=== PATIENT | male | born 1980 | race Caucasian/White ===

== ENCOUNTER 2024-04-02 04:02 | Emergency (ER) | payer BC ==
[~2024-04-02] VITALS: Ht 177.8 cm; Wt 118.0 kg
[2024-04-02] VITALS (17 sets, daily range): BP systolic 123–155; BP diastolic 79–107
[2024-04-02] MEDS ORDERED: SODIUM CHLORIDE 0.9% 1,000 ML IV STA (04:16)
[2024-04-02] MEDS ORDERED: KETOROLAC TROMETHAMINE 30 MG/ML SDV IV ONE (04:20)
[2024-04-02] MEDS ORDERED: DIATRIZOATE MEGLUMINE & SODIUM 30 ML/BTL PO ONE (04:20)
[2024-04-02] MEDS ORDERED: PROMETHAZINE HCL 25 MG/ML AMP IV ONE (04:20)
[2024-04-02 04:41] LABS: URINE BLOOD DIPSTICK Trace-intact (NEGATIVE); URINE GLUCOSE - DIPSTICK Negative (NEGATIVE); URINE KETONE Negative (NEGATIVE); URINE LEUK ESTERASE Negative (NEGATIVE); URINE NITRITE - DIPSTICK Negative (Negative); URINE PROTEIN - DIPSTICK Negative (NEG-TRACE); URINE SPECIFIC GRAVITY 1.015
[2024-04-02 04:41] LABS: BASO% 0.5 % (0-3); EOS% 2.2 % (0-8); HEMATOCRIT 45.3 % (39.0-50.0); HEMOGLOBIN 15.8 g/dl (14.0-18.0); IMMATURE GRANULOCYTES 0.7 % (0.0-5.0); LYMPH% 10.8 % (15-41); MEAN CELL VOLUME 97.6 fL CALC (80.0-100.0); MEAN CORPUSCULAR HGB 34.1 pG CALC (26.0-32.0); MEAN CORPUSCULAR HGB CONC 34.9 g/dL CAL (32.0-36.0); MONO% 7.3 % (2-13); NEUT# 12.79 thou/uL (1.82-7.42); NEUT% 78.5 % (42-76); RED BLOOD COUNT 4.64 mill/uL (4.70-6.10); RED CELL DISTRI WIDTH 12.3 % (11.5-15.5)
[2024-04-02 04:42] LABS: URINE COLOR Yellow
[2024-04-02 04:53] LABS: ALBUMIN 4.3 g/dL (3.2-5.0); ALKALINE PHOSPHATASE 68 u/l (38-126); ANION GAP 15 (6-22 (CALC)); BILIRUBIN, TOTAL 2.3 mg/dL (0.2-1.3); BUN 11 mg/dL (9-20); BUN/CREATININE RATIO 11 (12-20 (CALC)); CARBON DIOXIDE 28 mmol/l (22-30); CHLORIDE 92 mmol/l (95-108); ESTIMATED GFR 95 ML/MIN (>=90 (CALC)); LIPASE 322 u/l (23-300); POTASSIUM 3.2 mmol/l (3.5-5.1); SGOT/AST 36 u/l (17-59); SODIUM 132 mmol/l (137-146); TOTAL PROTEIN 8.2 g/dL (6.3-8.2)
[2024-04-02] MEDS ORDERED: BUPROPN HCL150 MG PO (05:07)
[2024-04-02] MEDS ORDERED: METOPROLOL TAR100 MG PO (05:08)
[2024-04-02] MEDS ORDERED: NITROGLYCERIN0.4 MG SL (05:12)
[2024-04-02] MEDS ORDERED: MYSOLINE50 M1 PO (05:13)
[2024-04-02] MEDS ORDERED: HYDROCHLOROTH12.5 MG PO (05:14)
[2024-04-02] MEDS ORDERED: RAPIFLUX20 M1 PO (05:14)
[2024-04-02] MEDS ORDERED: XANAX1 MG PO (05:15)
[2024-04-02] MEDS ORDERED: ASPIRINCHW 81MG PO (05:16)
[2024-04-02] MEDS ORDERED: SODIUM CHLORIDE 0.9% 1,000 ML IV ONE (06:35)
[2024-04-02] MEDS ORDERED: POTASSIUM CHLORIDE 20MEQ 100 ML IV ONE (06:35)
[2024-04-02] MEDS ORDERED: MORPHINE SULFATE 4 MG/ML VIAL IV ONE (07:15)
[2024-04-02] MEDS ORDERED: K-TAB20 MEQ PO (08:45)
[2024-04-02] MEDS ORDERED: LEVSIN0.125 M1 PO (08:45)
[2024-04-02] MEDS ORDERED: ZOFRAN4 MG/TAB PO (08:45)
[2024-04-02] MEDS ORDERED: TRAMADOL HYDROC50 M1 PO (08:45)
== END 2024-04-02 09:21 | disposition home or self-care (01) | DRG 392 ==
LOC: ED 04:02
PROVIDERS: Family Medicine
DX: R10.13 Epigastric pain (principal); I10 Essential (primary) hypertension
CPT/HCPCS: Q9967

== ENCOUNTER 2024-05-13 08:47 | Emergency (ER) | payer BC ==
[~2024-05-13] VITALS: Ht 177.8 cm; Wt 117.0 kg
[2024-05-13] VITALS (21 sets, daily range): BP systolic 122–156; BP diastolic 81–108
[~2024-05-13 08:47] MED LIST: ASPIRINCHW 81MG PO; BUPROPN HCL150 MG PO; HYDROCHLOROTH12.5 MG PO; K-TAB20 MEQ PO; LEVSIN0.125 M1 PO; METOPROLOL TAR100 MG PO; MYSOLINE50 M1 PO; NITROGLYCERIN0.4 MG SL; RAPIFLUX20 M1 PO; TRAMADOL HYDROC50 M1 PO; XANAX1 MG PO; ZOFRAN4 MG/TAB PO
[2024-05-13] MEDS ORDERED: ONDANSETRON HCl 4 MG/2 ML SDV IV ONE ×2 (08:55→14:10)
[2024-05-13] MEDS ORDERED: SODIUM CHLORIDE 0.9% 1,000 ML IV ONE (08:55)
[2024-05-13] MEDS ORDERED: KETOROLAC TROMETHAMINE 15 MG/ML SDV IV ONE (09:00)
[2024-05-13 09:21] LABS: BASO% 0.3 % (0-3); EOS% 0.2 % (0-8); HEMATOCRIT 45.8 % (39.0-50.0); HEMOGLOBIN 15.5 g/dl (14.0-18.0); IMMATURE GRANULOCYTES 0.2 % (0.0-5.0); LYMPH% 15.9 % (15-41); MEAN CELL VOLUME 103.6 fL CALC (80.0-100.0); MEAN CORPUSCULAR HGB 35.1 pG CALC (26.0-32.0); MEAN CORPUSCULAR HGB CONC 33.8 g/dL CAL (32.0-36.0); MONO% 9.2 % (2-13); NEUT# 9.53 thou/uL (1.82-7.42); NEUT% 74.2 % (42-76); RED BLOOD COUNT 4.42 mill/uL (4.70-6.10); RED CELL DISTRI WIDTH 16.5 % (11.5-15.5)
[2024-05-13 09:43] LABS: ALBUMIN 4.1 g/dL (3.2-5.0); POTASSIUM 3.8 mmol/l (3.5-5.1); TOTAL PROTEIN 7.8 g/dL (6.3-8.2)
[2024-05-13 09:45] LABS: BILIRUBIN, TOTAL 1.3 mg/dL (0.2-1.3)
[2024-05-13] MEDS ORDERED: LIDOCAINE VISCOUS 2% 15 ML UDC PO ONE (10:10)
[2024-05-13] MEDS ORDERED: ALUM & MAG HYDROX-SIMETHICONE 30 ML PO ONE (10:10)
[2024-05-13] MEDS ORDERED: Pantoprazole Sodium 40 MG VIAL (Protonix) IV ONE (10:30)
[2024-05-13 11:17] LABS: URINE BILIRUBIN - DIPSTICK Negative (NEGATIVE); URINE BLOOD DIPSTICK Negative (NEGATIVE); URINE GLUCOSE - DIPSTICK Negative (NEGATIVE); URINE KETONE Trace mg/dL (NEGATIVE); URINE LEUK ESTERASE Negative (NEGATIVE); URINE NITRITE - DIPSTICK Negative (Negative); URINE PH 7.5 (4.5-8.0); URINE PROTEIN - DIPSTICK Trace mg/dL (NEG-TRACE)
[2024-05-13 11:23] LABS: URINE COLOR Yellow
[2024-05-13] MEDS ORDERED: PROMETHAZINE HCL 25 MG/ML AMP IM ONE (11:50)
[2024-05-13] MEDS ORDERED: PROMETHAZINE HY25 M1 PO (13:52)
[2024-05-13] MEDS ORDERED: PEPCID20 MG PO (13:52)
== END 2024-05-13 14:16 | disposition home or self-care (01) | DRG 392 ==
LOC: ED 08:47
PROVIDERS: Family Medicine
DX: R10.13 Epigastric pain (principal)
CPT/HCPCS: J1885; J2405; J2470; J2550; Q9967